=== PATIENT | female | born 2000 | race Caucasian/White ===

== ENCOUNTER 2021-03-06 16:02 | Outpatient (CLI) | payer OTHER ==
[2021-03-09] MEDS ORDERED: prednisone PO (15:00)
== END 2021-03-06 23:59 | disposition home or self-care (01) ==
LOC: STAR 16:02
PROVIDERS: ATTEND Otolaryngology
DX: Z02.9 Encounter for administrative examinations, unspecified (principal)

== ENCOUNTER 2021-03-10 05:52 | Day surgery (SDC) | payer OTHER ==
[~2021-03-10] VITALS: Ht 172.7 cm; Wt 59.0 kg
[~2021-03-10 05:52] MED LIST: prednisone PO
[2021-03-10 06:16] VITALS: BP 112/72
[2021-03-10] MEDS ORDERED: CHLORHEXIDINE 15 ML UDC PO ONE (06:30)
[2021-03-10] MEDS ORDERED: LIDOCAINE-MPF 1%, 2ML INFIL ONE (06:30)
[2021-03-10] MEDS ORDERED: LACTATED RINGERS 1,000 ML IV SCH (06:30)
[2021-03-10 06:37] LABS: HCG UR SG 1.029 (1.003-1.030)
[2021-03-10] MEDS ORDERED: LIDOCAINE/PF 1%, 30ML ONE (06:51)
[2021-03-10] MEDS ORDERED: EPINEPHRINE TOPICAL SOLN 1 MG/ML, 30ML ONE (06:51)
[2021-03-10] MEDS ORDERED: ALBU18HF INH (06:51)
[2021-03-10] MEDS ORDERED: FLUT9.9S NAS (06:51)
[2021-03-10] MEDS ORDERED: BACITRACIN OINT 500U/GM, 15 GM ONE (06:51)
[2021-03-10] MEDS ORDERED: FLUORESCEIN SODIUM 500 MG/5 ML ONE (06:51)
[2021-03-10] MEDS ORDERED: OXYMETAZOLINE NASAL SPRAY 0.05%,30ML ONE (06:52)
[2021-03-10] MEDS ORDERED: EPINEPHRINE 1 MG/ML, 1ML ONE (06:52)
[2021-03-10] MEDS ORDERED: BACITRACIN 50,000 UNIT ONE (06:52)
[2021-03-10] MEDS ORDERED: FENTANYL PF 100 MCG/2ML ONE ×2 (07:14→10:28)
[2021-03-10] MEDS ORDERED: MIDAZOLAM 1 MG/ML, 2ML ONE (07:14)
[2021-03-10] MEDS ORDERED: HYDROmorphone 1 MG/ML, 1ML INJ ONE ×2 (07:14→09:16)
[2021-03-10] MEDS ORDERED: PROPOFOL 10 MG/ML, 20ML ONE ×2 (07:16→07:17)
[2021-03-10] MEDS ORDERED: HYDROCORTISONE 100 MG INJ. ONE (07:16)
[2021-03-10] MEDS ORDERED: SCOPOLAMINE 1MG PATCH TD SCH (07:30)
[2021-03-10] MEDS ORDERED: DIAZEPAM 5 MG TABLET PO ONE (07:30)
[2021-03-10] MEDS ORDERED: GLYCOPYRROLATE 0.2MG/1ML, 5ML ONE (07:37)
[2021-03-10] MEDS ORDERED: CEFAZOLIN 1,000 MG ONE (07:37)
[2021-03-10] MEDS ORDERED: ONDANSETRON 2MG/ML, 2ML ONE (07:37)
[2021-03-10] MEDS ORDERED: ROCURONIUM 10 MG/ML,10ML ONE (07:37)
[2021-03-10] MEDS ORDERED: NEOSTIGMINE 1 MG/ML, 10ML ONE (07:37)
[2021-03-10] MEDS ORDERED: OXYcodone 5 MG/5 ML ORAL.SOL UDC PO PRN (08:30)
[2021-03-10] MEDS ORDERED: hydrALAzine 20 MG/ML, 1ML IV PRN (08:30)
[2021-03-10] MEDS ORDERED: METOCLOPRAMIDE 5 MG/ML, 2ML IVPush PRN (08:30)
[2021-03-10] MEDS ORDERED: KETOROLAC 30 MG/1 ML IV PRN (08:30)
[2021-03-10] MEDS ORDERED: MEPERIDINE/PF 25MG/0.5ML IVPush PRN (08:30)
[2021-03-10] MEDS ORDERED: ONDANSETRON 2MG/ML, 2ML IVPush PRN (08:30)
[2021-03-10] MEDS ORDERED: PROMETHAZINE 25 MG/ML, 1ML IVPush PRN (08:30)
[2021-03-10] MEDS ORDERED: HYDROmorphone 1 MG/ML, 1ML INJ IVPush PRN (08:30)
[2021-03-10] MEDS ORDERED: METOPROLOL 1 MG/ML, 5ML IV PRN (08:30)
[2021-03-10] MEDS ORDERED: ACETAMINOPHEN 325 MG TABLET PO PRN (08:30)
[2021-03-10] MEDS ORDERED: DIPHENHYDRAMINE 50 MG/ML, 1ML IVPush PRN (08:30)
[2021-03-10] MEDS ORDERED: EPHEDRINE 50 MG/ML, 1ML IVPush PRN (08:30)
[2021-03-10] MEDS ORDERED: LABETALOL 5MG/ML, 20ML IV PRN (08:30)
[2021-03-10] MEDS ORDERED: HALOPERIDOL 5 MG/ML IV PRN (08:30)
[2021-03-10] MEDS: FENTANYL PF 100 MCG/2ML IV PRN ×2 (10:25→10:35)
[2021-03-10] MEDS ORDERED: DIPHENHYDRAMINE 50 MG/ML, 1ML ONE (10:49)
== END 2021-03-10 13:13 | disposition home or self-care (01) ==
LOC: OUT 05:52
PROVIDERS: ATTEND Otolaryngology
DX: J01.01 Acute recurrent maxillary sinusitis (principal); J32.4 Chronic pansinusitis; J34.2 Deviated nasal septum; J34.3 Hypertrophy of nasal turbinates; J33.9 Nasal polyp, unspecified; J34.89 Other specified disorders of nose and nasal sinuses; J45.909 Unspecified asthma, uncomplicated; F17.210 Nicotine dependence, cigarettes, uncomplicated; Z79.899 Other long term (current) drug therapy; Z91.048 Other nonmedicinal substance allergy status
CPT/HCPCS: 30140; 30520; 31253; 31257; 31267; 81025; 87070; 87075; 87077; 87186; 87205; 88304; 88311; J0171; J0690; J1170; J1200; J1720; J2250; J2405; J2704; J2710; J3010; J7120

== ENCOUNTER 2021-03-10 15:23 | Emergency (ER) | payer OTHER ==
[~2021-03-10] VITALS: Ht 172.7 cm; Wt 60.9 kg
[~2021-03-10 15:23] MED LIST changes: +ALBU18HF INH; +FLUT9.9S NAS
[2021-03-10 15:40] VITALS: BP 119/77
[2021-03-10] MEDS ORDERED: OXYMETAZOLINE NASAL SPRAY 0.05%,30ML ONE (15:51)
--- NOTE | 2021-03-10 15:54 | NUR ---
SURGEON AT BEDSIDE FOR EVAL.
[2021-03-10] MEDS ORDERED: NEOSPORIN OINT. PKT 1 PACKET ONE (16:01)
[2021-03-10] MEDS ORDERED: OXYcodone/APAP 5/325MG TABLET ONE (16:02)
--- NOTE | 2021-03-10 16:05 | NUR ---
DR. ÁLVAREZ REQUESTING 4% LIDOCAINE. REQUESTED FROM PHARMACY.
[2021-03-10] MEDS ORDERED: LIDOCAINE-MPF 2% ,5ML ONE (16:08)
[2021-03-10] MEDS ORDERED: OXYcodone/APAP 5/325MG TABLET PO ONE (17:00)
[2021-03-10] MEDS ORDERED: LIDOCAINE 2%, 10ML INFIL ONE (17:00)
[2021-03-10] MEDS ORDERED: OXYMETAZOLINE NASAL SPRAY 0.05%,30ML NAS ONE (17:00)
--- NOTE | 2021-03-10 17:05 | NUR ---
PER DR. GEE ENT, FINA TO DC PATIENT.
== END 2021-03-10 17:20 | disposition home or self-care (01) ==
LOC: ED 17:00
DX: R04.0 Epistaxis (principal)
CPT/HCPCS: 99283

== ENCOUNTER 2021-03-17 13:05 | Day surgery (SDC) | payer OTHER ==
[~2021-03-17] VITALS: Ht 172.7 cm; Wt 56.7 kg
[~2021-03-17 13:05] MED LIST changes: +OXYMETAZOLINE NASAL SPRAY 0.05%,30ML ONE
[2021-03-17 13:51] VITALS: BP 118/80
== END 2021-03-17 15:05 | disposition home or self-care (01) ==
LOC: OUT 13:05
PROVIDERS: ATTEND Otolaryngology
DX: J32.4 Chronic pansinusitis (principal); J33.8 Other polyp of sinus; J31.0 Chronic rhinitis; J34.2 Deviated nasal septum; J01.01 Acute recurrent maxillary sinusitis; Z20.822 Contact with and (suspected) exposure to COVID-19; Z79.899 Other long term (current) drug therapy
CPT/HCPCS: 31237; 87635; U0003; U0005